=== PATIENT | female | born 1990 | race Caucasian/White ===

== ENCOUNTER 2025-06-16 14:36 | Outpatient (CLI) | payer BC, SELFPAY ==
--- OUTSIDE RECORDS SUMMARY | 2025-06-16 14:41 | XMS_ITS | Referral Summary ---
Author Organization [facility] ([place], [place], [place], [place], [place]) Address [address] [place] [address] Care Team Providers Care Lead Technician Name Role Phone Bravo Torres Primary Care Provider Unavailcindy e Allergies Active Allergy Reactions Criticality Noted Date Comments Amoxicillin Nausea And Vomiting High 07/12/2022 Azithromycin Nausea And Vomiting High 07/12/2022 Penicillin Anaphylaxis High 07/12/2022 Medications albuterol (PROVENTIL) 2.5 mg/0.5 mL Nebu nebulizer solution Take 2.5 mg by nebulization. Active fluticasone (VERAMYST) 27.5 mcg/actuation nasal spray 2 sprays by Nasal route daily. Active gabapentin (NEURONTIN) 300 MG capsule Take 300 mg by mouth 3 (three) times daily. Active metFORMIN (GLUCOPHAGE) 1000 MG tablet Take 1,000 mg by mouth 2 (two) times daily with breakfast and dinner. Active montelukast (SINGULAIR) 10 mg tablet Take 10 mg by mouth nightly. Active omeprazole (PriLOSEC) 40 MG capsule Take 40 mg by mouth daily. Active levonorgestrel- ethinyl estradiol (Simpesse) 0.15 mg-30 mcg (84)/10 mcg (7) tablet Take 1 tablet by mouth daily. Active TiZANidine (ZANAFLEX) 4 MG capsule Take 4 mg by mouth 3 (three) times daily. Active traZODone (DESYREL) 150 MG tablet Take 150 mg by mouth nightly. Active venlafaxine (EFFEXOR-XR) 75 MG 24 hr capsule Take 75 mg by mouth daily. Active Active Problems Problem Noted Date Diagnosed Date Iron deficiency anemia, unspecified 08/17/2022 Social History Tobacco Use Types Packs/Day Years Used Date Smoking Tobacco: Every Day Cigarettes 1 8 Smokeless Tobacco: Never Alcohol Use Standard Drinks/Week Comments Never 0 (1 standard drink = 0.6 oz pur e alcohol) Family and Community Support Answer Shaun e Recorded Help with Day to Day Activities Not on file 08/11/2023 Feeling Lonely or Isolated Not on file 08/11 Educational Attainment Answer Date Viet rded Speak language other than [place] at home Not on file 08/11/2023 Want help with school or training Not on file 08/11/2023 Substance Use Answer Date Recorded Used prescription meds for non-medical reasons N ot on file 08/11/2023 Used illegal drugs past 12 months Not on file 08/11/2023 Comments Unknown Sex and Gender Information Value Date Recorded Sex Assigned at Not on file Legal Sex Female 4:17 PM CDT Gender Identity Not on file Sexual Orientation Not on file Last Filed Vital Signs Vital Sign Reading Time Taken Comments Blood Pressure 112/61 07/13/2022 1:06 PM EST Pulse 70 07/13/2022 1:06 PM EST Temperature 36.4 C (97.5 F) 07/13/2022 12:52 PM EST Respiratory Rate 15 07/13/2022 1:06 PM EST Oxygen Saturation 98% 07/13/2022 1:06 PM EST Inhaled Oxygen Concentration - - Weight 89 kg (196 lb 3.2 oz) 07/13/2022 7:42 AM EST Height 170.2 cm (5' 7 ) 07/13/2022 7:42 AM EST Body Mass Index 30.73 07/13/2022 7:42 AM EST Plan of Treatment Not on file Insurance BLUE CROSS/BLUE SHIELD Care Teams Lead Technician Relationship Specialty Start Date End Date Bravo Torres [address] [place] [address] PCP - General 07/12/22
--- OUTSIDE RECORDS SUMMARY | 2025-06-16 14:41 | XMS_ITS | Clinical Summary ---
Author Organization [facility] ([place], [place], [place], [place], [place]) Address [address] [place] [address] Care Team Providers Care Squeegee Finisher Name Role Phone Bravo Torres Primary Care [...] Diagnosed Date Iron deficiency anemia, unspecified 08/17/2022 Family History Medical History Relation Name Comments Diabetes Father Heart disease Father Hypertension Father Diabetes Mother Relation Name Status Comments Father Mother Social History Tobacco Use Types Packs/Day Years [...] Date Viet rded Speak language other than Malaysian at home Not on file 08/11/2023 Want [...] 07/13/2022 7:42 AM EST Plan of Treatment Health Maintenance Due Date Last Done Comments Depression Screening (12+) 2001 Tobacco Cessation Counseling and Screening (12+) 04/03 HIV Screening 2004 Hepatitis C Screening 2007 DTAP/TDAP/TD VACCINES (1 - Tdap) 2008 Pneumococcal Vaccine: 0-49 Years (1 of 2 - PCV) 2007 Lipid Panel 2009 Pap Smear 2010 COVID-19 VACCINE ( - season) 2025 Influenza Vaccine (#1) 2025 Insurance BLUE CROSS/BLUE SHIELD Care Teams Squeegee Finisher Relationship Specialty Start Date End Date Bravo Torres [address] [place] [address] PCP - General 07/12/22
[2025-06-16 15:14] LABS: Hematocrit 37.9 % (37.0-47.0); Hemoglobin 12.2 g/dL (12.2-16.2); Immature Granulocytes % 0.2 %; Mean Corpuscular HGB Conc 32.2 g/dL (31.8-35.4); Mean Corpuscular Hemoglobin 27.2 pg (27.0-31.2); Mean Corpuscular Volume 84.6 fl (81-99); Nucleated Red Blood Cells % 0 %; Platelet Count 359 K/mm3 (142-424); Red Blood Count 4.48 M/mm3 (4.20-5.40); Red Cell Distribution Width-SD 50.4 fL; White Blood Count 8.5 K/mm3 (4.8-10.8)
[2025-06-16 15:52] LABS: Iron 43 ug/dL (37-170)
[2025-06-16 16:25] LABS: Total Iron Binding Capacity 445 ug/dL (265-497)
[2025-06-16 16:54] LABS: Ferritin 5.11 ng/ml (6.24-137)
== END 2025-06-16 23:59 | disposition home or self-care (01) ==
LOC: LAB 14:36
PROVIDERS: PCP Family Medicine; Visit Provider Internal Medicine Medical Oncology
DX: D64.9 Anemia, unspecified (principal)
CPT/HCPCS: 36415; 82728; 83540; 83550; 85025